=== PATIENT | male | born 1995 | race Caucasian/White ===

== ENCOUNTER 2017-11-11 13:27 | Emergency (ER) | payer OTHER ==
--- OUTSIDE RECORDS SUMMARY | 2017-11-11 13:34 | XMS REPORT ---
:1995 External Reference #:[id number] Author Organization [facility] Address [address] [place] [address] Phone [phone] Care Team Providers Name Role Phone Michele Alvarez M.D. Primary Care Physician Unavailable Payers Type Date Identification Numbers Payment Provider Subscriber Commercial Effective: Policy Number: [employer] Zachary Mcmillan 2013 [id number] PayID: [id number] [address] [place] [address] Problems Date Description Provider Status Onset: 02/03/2012 Chronic headache disorder Deja Tellez NP Resolved Resolved: 11/13/2015 Family History Date Family Member(s) Problem(s) Comments Father Hyperthyroidism Mother Depression Mother Migraine First Sister Migraine Uncle Heart Disease Social History Type Date Description Comments ETOH Use Occasionally consumes alcohol weekly over the summer, 5-6 drinks Smoking Patient has never smoked Recreational Drug Use Formerly used Marijuana sporadically Currently Active Patient is currently sexually active Last [place] 1 year ago # Partners in a Lifetime 3 Allergies, Adverse Reactions, Alerts Date Description Reaction Status Severity Comments 03/21/2014 NKDA active Medications Medication Date Status Form Strength Qnty SIG Indications Ordering Provider Tretinoin Active Cream 0.025% Apply A Unknown 000 Pea Size Amount To Acne-Pron e Areas Daily AT Bedtime Clindamycin Active Lotion 1% Apply To Unknown Phosphate 000 Acne Prone Skin Every Morning Amoxicillin Hx Tablets 875mg 20tabs 1 tab by J01.00 Michele 016 - mouth [place], twice a M.D. 016 day No Active Hx Unknown Medications 016 - 016 Topamax Hx Tablets 50mg three Deja 014 - tablets [place], [employer] daily 016 Amoxicillin Hx Tablets 875mg QS one 461.8 Deja 014 - tablet [place], [employer] WORK[employer] twice a 014 day for 7 days Cyproheptadine /0 Hx Tablets 4mg Unknown HCL 000 - 016 Cimetidine Hx Tablets 400mg Take 1 Unknown 000 - Tablet By Mouth 018 Twice Daily Medications Administered in Office Medication Date Status Form Strength Qnty SIG Indications Ordering Provider Immunization 12/19/ Administered Injection Nursing Administration 2015 Single Or Combination Immunization 12/04/ Administered Injection Nursing Administration 2015 Single Or Combination TB Intradermal 12/04/ Administered Injection Nursing Test 2016 Immunization 11/12/ Administered Injection Michele Administration 2016 [place], Single Or M.D. Combination Immunization 04/10/ Administered Injection Nursing Administration 2014 Single Or Combination Immunization 07/15/ Administered Injection Michele Administration 2014 [place], Single Or M.D. Combination Immunizations CPT Code Status Date Vaccine Lot # [id number] Given 12/20/2015 Meningococcal B Vaccine [id number] 61748 Given 11/13/2015 Meningococcal B Vaccine [id number] 33449 Given 04/10/2015 Flumist [id number] 27125 Given 07/15/2014 Menactra [id number] 58579 Given 01/18/2014 Gardasil 38205 Given 11/10/2013 Gardasil 72285 Given 07/14/2013 Gardasil 19828 Given 03/25/2013 Influenza Virus Vaccine, Split Virus, 6-35 Months Age Intramuscul 49002 Given 03/03/2012 Influenza Virus Vaccine, Split Virus, 6-35 Months Age Intramuscul 52763 Given 05/28/2011 Gardasil 55426 Given 01/14/2011 Influenza Virus Vaccine, Split Virus, 6-35 Months Age Intramuscul 46006 Given 03/23/2010 Influenza Virus Vaccine Intranasal 94717 Given 03/20/2009 Influenza Virus Vaccine Intranasal 49327 Given 08/31/2008 Varicella (Chicken Pox) Vaccine 54438 Given 08/31/2008 Tdap 56547 Given 08/31/2008 Hepatitis A Pediatric 41527 Given 02/18/2008 Influenza Virus Vaccine Intranasal 35110 Given 08/10/2007 Menactra 86220 Given 08/10/2007 Hepatitis A Pediatric 23308 Given 03/03/2007 Influenza Virus Vaccine, Split Virus, 6-35 Months Age Intramuscul 32536 Given 03/19/2006 Influenza Virus Vaccine, Split Virus, 6-35 Months Age Intramuscul 16281 Given 01/11/2002 Polio Injectable 10131 Given 01/11/2002 MMR Vaccine, Live, For Subcutaneous Use 12574 Given 01/11/2002 DTaP Vaccine Younger Than 7 56981 Given 09/20/1998 DTaP Vaccine Younger Than 7 26055 Given 09/20/1998 Hib Vaccine 48259 Given 06/26/1998 Varicella (Chicken Pox) Vaccine 06458 Given 06/26/1998 Polio Injectable 84580 Given 06/26/1998 MMR Vaccine, Live, For Subcutaneous Use 25223 Given 1997 Hib Vaccine 07690 Given 1997 DTaP Vaccine Younger Than 7 96421 Given 1997 Hepatitis B Vaccine Pediatric/Adolescent 26037 Given 1997 Polio Injectable 59973 Given 1997 DTaP Vaccine Younger Than 7 91501 Given 1997 Hib Vaccine 76095 Given 1997 Polio Injectable 64090 Given 1997 DTaP Vaccine Younger Than 7 97096 Given 1997 Hib Vaccine 07547 Given 1997 Hepatitis B Vaccine Pediatric/Adolescent 25175 Given 1997 Hepatitis B Vaccine Pediatric/Adolescent Vital Signs Date Vital Result Comment 11/11/2017 Body Temperature 98.4 F Heart Rate 94 /min Respiratory Rate 12 /min BP Systolic 138 mmHg BP Diastolic 84 mmHg BP Systolic Recheck 113 mmHg BP Diastolic Recheck 74 mmHg Weight 167.69 lb Weight in kg's 76.063 Height 69 inches 5'9" BMI (Body Mass Index) 24.8 kg/m2 11/26/2016 Body Temperature 98.3 F Heart Rate 75 /min Respiratory Rate 12 /min BP Systolic 120 mmHg BP Diastolic 77 mmHg Weight 162.19 lb Weight in kg's 73.568 Height 69 inches 5'9" BMI (Body Mass Index) 23.9 kg/m2 Body Mass Index Percentile 65 % 11/15/2015 Body Temperature 98.2 F Heart Rate 79 /min Respiratory Rate 12 /min BP Systolic 138 mmHg BP Diastolic 85 mmHg Blood Pressure Percentile 94 % Weight 149.38 lb Weight in kg's 67.757 Height 69 inches 5'9" BMI (Body Mass Index) 22.1 kg/m2 Body Mass Index Percentile 49 % Height Percentile 44 % Weight Percentile 49th 11/13/2015 Body Temperature 97.8 F Heart Rate 84 /min Respiratory Rate 12 /min BP Systolic 114 mmHg BP Diastolic 72 mmHg Blood Pressure Percentile 27 % Weight 148.75 lb Weight in kg's 67.473 Height 68.4 inches 5'8.40" BMI (Body Mass Index) 22.4 kg/m2 Body Mass Index Percentile 53 % Height Percentile 36 % Weight Percentile 48th 09/26/2015 Body Temperature 98.9 F Heart Rate 87 /min Respiratory Rate 14 /min BP Systolic 178 mmHg BP Diastolic 80 mmHg Blood Pressure Percentile 0 % Weight 161.00 lb Weight in kg's 73.030 Weight Percentile 67th 07/15/2014 Body Temperature 98.0 F Heart Rate 88 /min Respiratory Rate 12 /min BP Systolic 104 mmHg BP Diastolic 69 mmHg Blood Pressure Percentile 8 % Weight 130.50 lb Weight in kg's 59.195 Height 68.75 inches 5'8.75" BMI (Body Mass Index) 19.4 kg/m2 Body Mass Index Percentile 23 % Height Percentile 46 % Weight Percentile 04/04/2014 Body Temperature 99.0 F Heart Rate 101 /min Respiratory Rate 18 /min BP Systolic 115 mmHg BP Diastolic 82 mmHg Blood Pressure Percentile 38 % Weight 126.50 lb Weight in kg's 57.380 Height 68.6 inches 5'8.60" BMI (Body Mass Index) 18.9 kg/m2 Body Mass Index Percentile 18 % Height Percentile 46 % Weight Percentile 25th 03/21/2014 Body Temperature 97.3 F Heart Rate 94 /min Respiratory Rate 16 /min BP Systolic 114 mmHg BP Diastolic 75 mmHg Blood Pressure Percentile 35 % Weight 128.12 lb Weight in kg's 58.117 Height 68.4 inches 5'8.40" BMI (Body Mass Index) 19.3 kg/m2 Body Mass Index Percentile 24 % Height Percentile 44 % Weight Percentile 11/10/2013 Heart Rate 73 /min Respiratory Rate 12 /min BP Systolic 109 mmHg BP Diastolic 69 mmHg Weight 126.00 lb Weight in kg's 57.153 07/14/2013 Heart Rate 80 /min Respiratory Rate 12 /min BP Systolic 102 mmHg BP Diastolic 69 mmHg Weight 129.50 lb Weight in kg's 58.740 Height 68 inches 03/25/2013 Heart Rate 85 /min Respiratory Rate 14 /min BP Systolic 105 mmHg BP Diastolic 73 mmHg Weight 127.00 lb Weight in kg's 57.606 07/07/2012 Heart Rate 98 /min Respiratory Rate 12 /min BP Systolic 110 mmHg BP Diastolic 73 mmHg Weight 113.81 lb Weight in kg's 51.619 Height 67 inches 03/03/2012 Heart Rate 80 /min Respiratory Rate 18 /min BP Systolic 106 mmHg BP Diastolic 64 mmHg Weight 113.38 lb Weight in kg's 51.428 02/03/2012 Heart Rate 68 /min BP Systolic 106 mmHg BP Diastolic 68 mmHg Weight 112.50 lb Weight in kg's 51.029 12/30/2011 Heart Rate 100 /min Respiratory Rate 20 /min BP Systolic 120 mmHg BP Diastolic 80 mmHg Weight 108.00 lb Weight in kg's 48.988 10/15/2011 Heart Rate 104 /min Respiratory Rate 16 /min BP Systolic 112 mmHg BP Diastolic 73 mmHg Weight 99.31 lb Weight in kg's 45.042 09/04/2011 Heart Rate 96 /min Respiratory Rate 20 /min BP Systolic 109 mmHg BP Diastolic 96 mmHg Weight 100.12 lb Weight in kg's 45.405 06/26/2011 Heart Rate 90 /min 06/26/2011 Heart Rate 61 /min Respiratory Rate 12 /min BP Systolic 93 mmHg BP Diastolic 58 mmHg Weight 105.00 lb Weight in kg's 47.627 06/14/2011 Heart Rate 85 /min Respiratory Rate 14 /min BP Systolic 103 mmHg BP Diastolic 67 mmHg Weight 105.19 lb Weight in kg's 47.713 05/28/2011 Heart Rate 73 /min Respiratory Rate 16 /min BP Systolic 108 mmHg BP Diastolic 68 mmHg Weight 105.19 lb Weight in kg's 47.718 Height 64.5 inches 05/08/2011 Heart Rate 76 /min Respiratory Rate 12 /min BP Systolic 116 mmHg BP Diastolic 76 mmHg Weight 107.38 lb Weight in kg's 48.716 04/01/2011 Heart Rate 70 /min Respiratory Rate 14 /min BP Systolic 100 mmHg BP Diastolic 64 mmHg Weight 105.00 lb Weight in kg's 47.627 02/28/2011 Heart Rate 91 /min Respiratory Rate 18 /min BP Systolic 104 mmHg BP Diastolic 65 mmHg Weight 102.12 lb Weight in kg's 46.321 02/14/2011 Heart Rate 72 /min Respiratory Rate 12 /min BP Systolic 108 mmHg BP Diastolic 72 mmHg Weight 105.19 lb Weight in kg's 47.700 02/04/2011 Heart Rate 86 /min Respiratory Rate 12 /min BP Systolic 105 mmHg BP Diastolic 72 mmHg Weight 104.50 lb Weight in kg's 47.400 01/24/2011 Heart Rate 100 /min Respiratory Rate 20 /min BP Systolic 125 mmHg BP Diastolic 73 mmHg Weight 103.19 lb Weight in kg's 46.811 01/22/2011 Heart Rate 80 /min Respiratory Rate 16 /min BP Systolic 116 mmHg BP Diastolic 64 mmHg Weight 105.25 lb Weight in kg's 47.741 01/15/2011 Heart Rate 92 /min Respiratory Rate 16 /min BP Systolic 114 mmHg BP Diastolic 70 mmHg 01/14/2011 Heart Rate 88 /min Respiratory Rate 12 /min BP Systolic 104 mmHg BP Diastolic 65 mmHg Weight 104.69 lb Weight in kg's 47.491 01/11/2011 Heart Rate 80 /min Respiratory Rate 16 /min BP Systolic 100 mmHg BP Diastolic 68 mmHg Weight 106.19 lb Weight in kg's 48.172 07/09/2010 Heart Rate 111 /min Respiratory Rate 16 /min BP Systolic 120 mmHg BP Diastolic 67 mmHg Weight 96.19 lb Weight in kg's 43.636 06/27/2010 Heart Rate 101 /min Respiratory Rate 16 /min BP Systolic 117 mmHg BP Diastolic 78 mmHg Weight 94.81 lb Weight in kg's 43.001 06/21/2010 Heart Rate 92 /min Respiratory Rate 12 /min BP Systolic 118 mmHg BP Diastolic 72 mmHg Weight 95.50 lb Weight in kg's 43.318 06/18/2010 Heart Rate 72 /min Respiratory Rate 14 /min BP Systolic 116 mmHg BP Diastolic 78 mmHg Weight 97.69 lb Weight in kg's 44.298 06/08/2010 Heart Rate 130 /min Respiratory Rate 16 /min BP Systolic 115 mmHg BP Diastolic 82 mmHg Weight 92.69 lb Weight in kg's 42.048 06/07/2010 Heart Rate 114 /min Respiratory Rate 16 /min BP Systolic 114 mmHg BP Diastolic 82 mmHg Weight 94.19 lb Weight in kg's 42.728 05/30/2010 Heart Rate 84 /min Respiratory Rate 16 /min BP Systolic 98 mmHg BP Diastolic 60 mmHg Weight 91.12 lb Weight in kg's 41.322 05/21/2010 Heart Rate 93 /min Respiratory Rate 16 /min BP Systolic 105 mmHg BP Diastolic 70 mmHg Weight 91.31 lb Weight in kg's 41.413 Height 61.25 inches 05/14/2010 Heart Rate 88 /min Respiratory Rate 16 /min BP Systolic 120 mmHg BP Diastolic 77 mmHg Weight 89.50 lb Weight in kg's 40.597 05/07/2010 Heart Rate 94 /min Respiratory Rate 12 /min BP Systolic 117 mmHg BP Diastolic 80 mmHg Weight 91.00 lb Weight in kg's 41.277 05/02/2010 Heart Rate 84 /min Respiratory Rate 12 /min BP Systolic 108 mmHg BP Diastolic 62 mmHg Weight 92.81 lb Weight in kg's 42.093 04/30/2010 Heart Rate 94 /min Respiratory Rate 16 /min BP Systolic 120 mmHg BP Diastolic 70 mmHg Weight 92.00 lb Weight in kg's 41.730 03/20/2009 Heart Rate 80 /min Respiratory Rate 16 /min BP Systolic 100 mmHg BP Diastolic 68 mmHg Weight 82.00 lb Weight in kg's 37.195 01/31/2009 Heart Rate 88 /min Respiratory Rate 20 /min BP Systolic 102 mmHg BP Diastolic 70 mmHg Weight 82.50 lb Weight in kg's 37.421 09/20/2008 Heart Rate 88 /min Respiratory Rate 20 /min BP Systolic 100 mmHg BP Diastolic 62 mmHg Weight 80.00 lb Weight in kg's 36.287 09/13/2008 Heart Rate 90 /min Respiratory Rate 18 /min BP Systolic 100 mmHg BP Diastolic 76 mmHg Weight 81.50 lb Weight in kg's 36.968 08/31/2008 Heart Rate 88 /min Respiratory Rate 16 /min BP Systolic 96 mmHg BP Diastolic 60 mmHg Weight 81.50 lb Weight in kg's 36.968 Height 56.5 inches 08/08/2008 Heart Rate 84 /min Respiratory Rate 16 /min BP Systolic 90 mmHg BP Diastolic 60 mmHg Weight 80.50 lb Weight in kg's 36.514 11/05/2007 Heart Rate 120 /min Respiratory Rate 16 /min BP Systolic 100 mmHg BP Diastolic 60 mmHg Weight 73.50 lb Weight in kg's 33.339 Height 54.75 inches 08/10/2007 Heart Rate 96 /min Respiratory Rate 20 /min BP Systolic 82 mmHg BP Diastolic 68 mmHg Weight 72.00 lb Weight in kg's 32.659 Height 54.12 inches 08/03/2007 Heart Rate 96 /min Respiratory Rate 20 /min BP Systolic 106 mmHg BP Diastolic 64 mmHg Weight 71.00 lb Weight in kg's 32.205 07/25/2007 Heart Rate 80 /min Respiratory Rate 20 /min BP Systolic 110 mmHg BP Diastolic 62 mmHg Weight 70.00 lb Weight in kg's 31.751 07/06/2007 Heart Rate 80 /min Respiratory Rate 16 /min BP Systolic 90 mmHg BP Diastolic 58 mmHg Weight 70.00 lb Weight in kg's 31.751 11/28/2006 Heart Rate 84 /min Respiratory Rate 28 /min BP Systolic 102 mmHg BP Diastolic 52 mmHg Weight 67.00 lb Weight in kg's 30.391 07/31/2006 Heart Rate 88 /min Respiratory Rate 28 /min BP Systolic 96 mmHg BP Diastolic 62 mmHg Weight 64.50 lb Weight in kg's 29.257 Height 52.5 inches 09/21/2005 Heart Rate 96 /min Respiratory Rate 20 /min BP Systolic 82 mmHg BP Diastolic 52 mmHg Weight 57.00 lb Weight in kg's 25.855 Results Test Date Test Result H/L Range Note Laboratory test finding 12/05/2015 PPD Intermediate neg Laboratory test finding 11/13/2015 .1-2 Test negative .Cholesterol Screening 07/15/2014 Cholesterol Total 132 Mass/Vol HDL Cholesterol Mass/Vol 43 Triglycerides Ser/Plas Mass/VL 79 LDL Cholesterol Mass/Vol 74 Non-HDL Cholesterol QN Ser/PLS 89 LDL/HDL Ratio 1.7 Laboratory test finding 04/04/2014 .Quick Influenza negative Laboratory test finding 07/07/2012 Granulocytes # 2.1 1.5-8.0 Granulocytes (%) 42.8 38.0-83.0 Hematocrit 45.1 36.0-46.0 Hemoglobin 15.3 12.0-16.0 Lymphocytes # 2.4 1.2-5.2 Lymphocytes % 47.4 High 20.0-45.0 Mean Corpuscular Hemoglobin 28.9 26.0-34.0 Mean Corpuscular Hemoglobin Concent 33.9 31.0-37.0 Mean Platelet Volume 8.9 7.4-10.4 Monocytes # 0.5 0.0-0.8 Monocytes % 9.8 High 1.0-9.0 Platelet Count 195 x10.3/ul 150-350 Poc Mean Corpuscular Volume 85.3 78.0-102.0 Red Blood Count 5.29 High 3.90-5.10 Red Cell Distribution Width 12.7 10.5-15.0 White Blood Count 5.0 4.5-13.5 Laboratory test finding 06/26/2011 Urine Bilirubin Negative Urine Blood negative Urine Clarity Clear Urine Collection Type Clean Urine Color Yellow Urine Glucose negative Urine Ketones Negative Urine Leukocyte Esterase negative Urine Nitrite Negative Urine Protein Negative Urine Specific [place] 1.005 Urine Urobilinogen Normal 0.2-1.0 Urine pH 6.5 Laboratory test finding 06/19/2011 Immunoglobulin A 100 mg/dL 52 - 319 Tissue Transglutaminase IgA Ab <1.2 Tissue Transglutaminase IgG Ab 2.3 Laboratory test finding 06/03/2011 Absolute Neutrophil 1.5 Anisocytosis Slight Atypical Lymphocytes % 2 % 0-6 Eosinophils % 2 % 0-6 Erythrocyte Sedimentation Rate 10 MM/HR 0-20 Helicobacter pylori IgA Antibody Negative Negative Hematocrit 38 % 35-45 Hemoglobin 13.1 11.5-15.5 Lymphocytes % 59 % High 25-47 Mean Corpuscular Hemoglobin 30 pg 27-31 Mean Corpuscular Hemoglobin Concent 35 g/dL 32-36 Mean Corpuscular Volume 85 um3 80-94 Mean Platelet Volume 10.1 7.4-10.4 Monocytes % 5 % 0-13 Neutrophils % 32 % Low 38-83 Platelet Count 173 CUMM 150-450 Red Blood Count 4.41 4.0-5.2 Red Cell Distribution Width 13 % 10.5-15 White Blood Count 4.7 Low 4.8-10.8 Laboratory test finding 01/12/2011 Throat Culture negative Laboratory test finding 10/02/2010 Williams-Ya Nuclear Antigen Negative Williams-Ya Virus Capsid Ag IgG Ab Negative [place] Virus Capsid Ag IgM Ab Negative Williams-[place] Virus Interpretation . Laboratory test finding 05/21/2010 Urine Bilirubin Negative Urine Blood negative Urine Clarity Clear Urine Collection Type Clean Urine Color Yellow Urine Glucose negative Urine Ketones Negative Urine Leukocyte Esterase negative Urine Nitrite Negative Urine Protein Negative Urine Specific [place] 1.005 Urine Urobilinogen Normal 0.2-1.0 Urine pH 8.5 Laboratory test finding 05/14/2010 Bartonella henselae IgG <1:128 <1:128 Antibody Bartonella henselae IgM Antibody <1:20 <1:20 Bartonella pope IgG Antibody <1:128 <1:128 Bartonella pope IgM Antibody <1:20 <1:20 Free Thyroxine 1.09 0.61-1.24 Lyme Disease Serology Negative Negative Thyroid Stimulating Hormone (TSH) 3.17 0.34-5.60 Thyroxine (T4) 7.9 5-12 Laboratory test finding 05/02/2010 1/Creatinine 2.50 Absolute Neutrophil 3.6 Alanine Aminotransferase (Alt/SGPT) 14 U/L Low 17-63 Albumin 4.5 3.6-5.4 Albumin/Globulin Ratio 2.1 1-3 Alkaline Phosphatase 286 U/L 135-393 Anion Gap 7.0 2-11 Anisocytosis Slight Aspartate Amino Transf (Ast/Sgot) 27 U/L 12-42 Atypical Lymphocytes % 1 % 0-6 BUN/Creatinine Ratio 20.0 8-20 Blood Urea Nitrogen 8 mg/dL 6-24 C-Reactive Protein 0.8 High Less Than 0.5 Calcium Level 9.6 8.1-9.9 Carbon Dioxide Level 31.0 22-32 Chloride Level 101 mmol/L 101-111 Creatinine 0.40 Low 0.50-1.40 Direct Bilirubin 0.2 0.1-0.5 Eosinophils % 3 % 0-6 Williams-Ya Nuclear Antigen Pending Williams-Ya Virus Capsid Ag IgG Ab Pending Williams-[place] Virus Capsid Ag IgM Ab Pending Williams-[place] Virus Interpretation Pending Globulin 2.1 2-4 Glucose Level 83 mg/dL 70-100 Hematocrit 38 % 34-40 Hemoglobin 13.6 11.5-14.0 Indirect Bilirubin 1.2 High 0.3-1.0 Lymphocytes % 33 % 25-47 Mean Corpuscular Hemoglobin 30 pg 25-33 Mean Corpuscular Hemoglobin Concent 35 g/dL 31-36 Mean Corpuscular Volume 84 um3 77-95 Mean Platelet Volume 8.7 7.4-10.4 Monocytes % 3 % 0-13 Monoscreen Negative Negative Neutrophils % 60 % 38-83 Platelet Count 232 CUMM 150-450 Potassium Level 4.2 3.6-5.2 Red Blood Count 4.59 3.9-5.3 Red Cell Distribution Width 13 % 10.5-15 Sodium Level 139 mmol/L 135-145 Thyroid Stimulating Hormone (TSH) 8.01 High 0.34-5.60 Total Bilirubin 1.4 0.4-1.5 Total Protein 6.6 6.2-8.1 White Blood Count 6.1 4.8-14.5 Procedures Date CPT Code Description Status 11/11/2017 78954 Admin Patient Focused Health Risk Assessment Instrument Completed 11/11/2017 19065 Brief Emotional/Behav Assessment W/ Scoring Doc Per Completed [facility] 11/26/2016 39316 Vision Screening Completed 11/26/2016 19568 Admin Patient Focused Health Risk Assessment Instrument Completed 11/26/2016 02603 Brief Emotional/Behav Assessment W/ Scoring Doc Per Completed Standard [facility] 11/26/2016 94559 Brief Emotional/Behav Assessment W/ Scoring Doc Per Completed Standard [facility] 11/26/2016 89003 Hearing Screen, Pure Tone, Air Completed 11/13/2015 20226 Vision Screening Completed 11/13/2015 00799 Hearing Screen, Pure Tone, Air Completed 11/13/2015 72464 Collection Of Capillary Blood Specimen Completed 07/15/2014 54753 Vision Screening Completed 07/15/2014 37665 Hearing Screen, Pure Tone, Air Completed 07/15/2014 55556 Collection Of Capillary Blood Specimen Completed Encounters Type Date Location Provider CPT E/M Dx Office Visit 11/26/2016 9:15a [facility] Michele Alvarez M.D. 71776 Z00.00 Z13.89 Z71.89 Office Visit 11/15/2015 9:15a [facility] Michele Alvarez M.D. 56624 J01.00 Office Visit 11/13/2015 11:15a [facility] Michele Alvarez M.D. 35758 Z00.00 Office Visit 09/26/2015 9:00a [facility] [place] M.D. 77722 S93.602A Office Visit 07/15/2014 9:30a [facility] Michele Alvarez M.D. 35299 V20.2 784.0 v65.42 Office Visit 04/04/2014 10:45a [facility] TRAY Amin 99040 465.8 Office Visit 03/21/2014 9:15a [facility] [place] [address] 461.8 Plan of Care 11/11/2017 - Michele Alvarez M.D.Z00.00 Encntr for general adult medical exam w/o abnormal findingsNew Labs:.1-2 TestImmunizations/Injections:Td Preservative Free For Use In Individuals 7 Yrs Or Older
[2017-11-11 13:52] VITALS: BP 112/71
--- NOTE | 2017-11-11 14:04 | UC ---
Laceration HPI - HPI Summary HPI Summary: 22 yo male presents with left index finger laceration sustained 20min PARAMEDIC RN. He tells me that he was cutting an avocado and the knife slipped and sliced his left index finger. He applied a bandage and came to urgent care. Last tetanus was within the last 5 years. - History Of Current Complaint Chief Complaint: UCLaceration Stated Complaint: FINGER LAC Time Seen by Provider: 11/11/17 13:54 Hx Obtained From: Patient Laceration Location: Finger Mechanism Of Injury: Sharp Trauma Severity: Mild Pain Intensity: 1 Pain Scale Used: 0-10 Numeric - Allergies/Home Medications Allergies/Adverse Reactions: Allergies Allergy/AdvReac Type Severity Reaction Status Date / Time No Known Allergies Allergy Unverified 11/11/17 13:52 Home Medications: Home Medications Tretinoin/Emollient Base [Tretinoin Emollient] 0.05 % EX DAILY 11/11/17 [ History Confirmed 11/11/17] PMH/Surg Hx/FS Hx/Imm Hx - Additional Past Medical History Additional PMH: Acne Previously Healthy: Yes - Surgical History Surgical History: None - Family History Known Family History: Positive: None - Social History Occupation: Student Lives: Dormitory/Roommates Alcohol Use: Occasionally Substance Use Type: None Smoking Status (MU): Never Smoked Tobacco - Immunization History Most Recent Tetanus Shot: 11/11/17 Review of Systems Constitutional: Negative Skin: Other - Left index finger lac Respiratory: Negative Cardiovascular: Negative Neurovascular: Negative Neurological: Negative Psychological: Negative All Other Systems Reviewed And Are Negative: Yes Physical Exam - Summary Physical Exam Summary: GENERAL: NAD. WDWN. No pain distress. SKIN: V-shaped laceration to left index finger pad. Partial thickness. Well approximated. Scant active bleeding. Clean. NECK: Supple. Nontender. CHEST: No accessory muscle use. Breathing comfortably and in no distress. CV: Pulses intact MSK: Left index finger: FROM at MCP, PIP, and DIP. NEURO: Alert. Sensation left index finger intact PSYCH: Age appropriate behavior. Triage Information Reviewed: Yes Vital Signs: Initial Vital Signs Temp 98.4 F 11/11/17 13:47 Pulse 80 11/11/17 13:47 Resp 16 11/11/17 13:47 BP 112/71 11/11/17 13:47 Pulse Ox 98 11/11/17 13:47 Vital Signs Reviewed: Yes Laceration Repair - Laceration Repair 1 Description: Stellate Laceration Size After Repair: Length (cm) - 1.5 Irrigation With Pressure Irrigation Device: Yes Closure Material: Skin Adhesive Laceration Course/Dx - Course/Dx Course Of Treatment: Wound irrigated with 250mL NS. Laceration already clotting and is well approximated. I discussed at length using sutures vs dermabond for pt and he elected to use dermabond. Glue was applied and area bandaged with tubegauze. - Differential Dx - Laceration/Wound Provider Diagnoses: Left index finger laceration Discharge - Sign-Out/Discharge Documenting (check all that apply): Patient Departure - Discharge Plan Condition: Stable Disposition: HOME Patient Education Materials: Skin Adhesive Care (ED) Referrals: Michele Alvarez MD [Primary Care Provider] - Additional Instructions: If you develop a fever, shortness of breath, chest pain, new or worsening symptoms - please call your PCP or go to the ED. 1) Keep the bandage clean, dry, and intact until tomorrow morning 2) Apply a band-aid daily until well healed - Billing Disposition and Condition Condition: STABLE Disposition: Home
== END 2017-11-11 14:50 | disposition home or self-care (01) ==
LOC: UCEAST 13:27
DX: S61.211A Laceration without foreign body of left index finger without damage to nail, initial encounter (principal); W26.0XXA Contact with knife, initial encounter; Y93.89 Activity, other specified; Y92.9 Unspecified place or not applicable
CPT/HCPCS: 12001; 99201; G0463